=== PATIENT | female | born 1970 | race Caucasian/White ===

== ENCOUNTER 2016-12-13 08:00 | Emergency (ER) | payer BC ==
[2016-12-13] MEDS ORDERED: LACTATED RINGERS 1,000 ML ONE ×2 (08:55→12:24)
[2016-12-13] MEDS ORDERED: HYDROCORTISONE SOD SUCC 100 MG VIAL ONE (08:55)
[2016-12-13 09:02] LABS: ABSOLUTE NEUTROPHIL COUNT 12.5 K/mm3 (1.8-7.7); BASO % 0.3 % (0.2-1.0); EOS # 0.1 (0.0-0.5); EOS % 0.5 % (0.9-2.9); HEMATOCRIT 41.2 % (37.0-47.0); HEMOGLOBIN 14.1 gm/l (12.0-16.0); IMM NEUT # 0.1 K/mm3 (0-0.2); IMM NEUT% 0.5 % (0-1); LYMPH # 0.7 (1.0-4.8); LYMPH % 4.6 % (15-45); MEAN CORPUSCULAR HEMOGLOBIN 30.5 pg (27.0-31.0); MEAN CORPUSCULAR HGB CONC 34.2 g/dl (33.0-37.0); MEAN PLATELET VOLUME 10.4 fl (7.4-10.4); MONO # 1.4 (0.0-0.8); MONO % 9.6 % (4-12); NEUT % 84.5 % (43-75); PLATELET COUNT 170 K/mm3 (130-400); RED CELL DISTRIBUTION WIDTH 12.6 % (11.5-14.5)
[2016-12-13 09:21] LABS: ALB/GLOB RATIO 1.9 (>1.0); ALBUMIN 3.9 gm/dL (3.5-5.7)
[2016-12-13 10:45] LABS: URINE BILIRUBIN NEGATIVE (NEGATIVE); URINE BLOOD NEGATIVE (NEGATIVE); URINE GLUCOSE (UA) NEGATIVE (NEGATIVE); URINE LEUKOCYTE ESTERASE NEGATIVE (NEGATIVE); URINE NITRITE NEGATIVE (NEGATIVE); URINE PROTEIN NEGATIVE (NEGATIVE); URINE UROBILINOGEN NORMAL (0-1 mg/dl)
[2016-12-13 10:54] LABS: URINE APPEARANCE SL CLOUDY; URINE BACTERIA TRACE; URINE COLOR YELLOW; URINE CRYSTALS W /hpf; URINE RBC RARE /hpf; URINE WBC RARE /hpf
[2016-12-13 10:55] LABS: URINE AMORPHOUS SEDIMENT 2+
--- NOTE | 2016-12-13 12:58 | CT ---
CT ABDOMEN AND PELVIS WITHOUT CONTRAST HISTORY: Diffuse abdominal pain. Nausea and vomiting. TECHNIQUE: No intravenous contrast administered; contiguous axial images were acquired from the lung bases to the ischial tuberosities. Oral contrast was not administered. COMPARISON: 10/09/2016 FINDINGS: LUNG BASES: Redemonstration of small right-sided pulmonary nodules up to 4 mm in size. No airspace abnormality or pleural effusion. LIVER: No gross mass effect. SPLEEN: No focal mass effect. STOMACH: Decompression, limited assessment with this modality. PANCREAS: No focal mass effect. ADRENAL GLANDS: No mass effect. KIDNEYS: No renal calculi. No collecting system dilatation. GALLBLADDER: Present. BOWEL: Moderate fecal loading. Limited assessment of the distal colon due to decompression. No abnormal small bowel dilatation. APPENDIX: Normal gas-filled appendix. PELVIC ORGANS: No gross mass effect. FREE FLUID: No gross free fluid identified. ABDOMINOPELVIC LYMPH NODES: No abnormally enlarged lymph nodes identified. ABDOMINAL AORTA: Normal caliber. OSSEOUS STRUCTURES: No grossly destructive lesions. Diffuse disc bulge at L4-5. IMPRESSION: 1. Noninflammatory, nonobstructive appearance of bowel. 2. Normal appendix. 3. No evidence of upper urinary tract obstruction or urolithiasis. 4. Subcentimeter pulmonary nodules of the right lung base, seen previously on September 2016 study. These now demonstrate approximately 22 months of imaging stability. Results were electronically transmitted to the electronic medical record at 12/05/2016 at 1254 hours.
== END 2016-12-13 14:23 | disposition home or self-care (01) ==
LOC: ED 08:00
DX: R10.84 Generalized abdominal pain (principal); R11.2 Nausea with vomiting, unspecified; R19.7 Diarrhea, unspecified
CPT/HCPCS: 83690; 85025; 80053; 83735; 81001; 74176; 99284 ×2; 96374; 96361 ×3; J1720; J7120 ×2